=== PATIENT | male | born 1940 | race Caucasian/White ===

== ENCOUNTER → 2018-08-22 | Outpatient (CLI) | payer MEDICARE ==
[2018-08-22 10:30] VITALS: BP 106/66; PULSE 76; RESP 18; TEMP 97.9; BMI 29.0
--- NOTE | 2018-08-22 11:11 | P.GSHP ---
History of Present Illness H&P Date: 08/22/18 Chief Complaint: left breast cancer The patient is a 77 year old white male with acomplaint of a biopsy proven left breast cancer. He had a core biopsy of a lesion in the left breat on 08-13-18 which was positive for invasive ductal cancer. The lesion was noted to be 3 by 2.8 CM on ultrasound. The patient had a CT scan of his chest on 07-23-18 which showed 1. chronic appearing elevation of the right hemidiaphragm, patchy infiltrate right upper lobe 2. large mass in the left chest/retroareolar region, 3. right peribronchial wall thickening. This was done for pneumonia. This has resolved at this time. He follows with DR. Schreiber and was not concerned about his lung. The p atient feels a lump in his breast for about one year. It has increased in size. It is not painful. He has no lumps in his testicles. NO trauma or infectin in the breast. Family History: none Surgical History: 1. appy Medical History: 1. HTN 2. skizophrenia Social History: smoke: none alcohol: none drugs: none - Constitutional Constitutional: Denies chills, Denies fever - EENT Comment: wears glasses Eyes: bilateral blurred vision Ears: deny: decreased hearing, tinnitus Ears, nose, mouth and throat: Denies headache, Denies sore throat - Breasts Breasts: bilateral: as per HPI - Cardiovascular Comment: CHF, hole in the heart Cardiovascular: Reports high blood pressure - Respiratory Comment: pneumonia recently - Gastrointestinal Gastrointestinal: Denies abdominal pain, Denies diarrhea, Denies nausea, Denies vomiting - Genitourinary (Female) Genitourinary: Reports kidney stones - Genitourinary (Male) Genitourinary: Denies dysuria, Denies hematuria - Musculoskeletal Musculoskeletal: Denies myalgias - Integumentary Integumentary: Denies pruritus, Denies rash - Neurological Neurological: Denies numbness, Denies weakness - Psychiatric Psychiatric: Denies anxiety, Denies depression - Endocrine Endocrine: Denies fatigue, Denies weight change - Hematologic/Lymphatic Comment: aspirin - Allergic/Immunologic Allergic/Immunologic: Reports as per HPI Past Medical History Smoking Status: Never smoker Medications and Allergies Home Medications Medication Instructions Recorded Confirmed Type Albuterol Nebulized (Conc) 2.5 mg INHALATION QID 08/22/18 08/22/18 History [Ventolin Nebulized (Conc)] Aspirin [Children's Aspirin] 81 mg PO DAILY 08/22/18 08/22/18 History Budesonide [Pulmicort] 0.25 mg INHALATION DAILY 08/22/18 08/22/18 History Doxycycline Hyclate [Vibramycin] 100 mg PO DAILY 08/22/18 08/22/18 History Ezetimibe [Zetia] 10 mg PO DAILY 08/22/18 08/22/18 History Isosorbide Mononitrate ER [Imdur] 30 mg PO DAILY 08/22/18 08/22/18 History Loratadine [Claritin] 10 mg PO DAILY 08/22/18 08/22/18 History Montelukast Sodium [Singulair] 10 mg PO HS 08/22/18 08/22/18 History OLANZapine [ZyPREXA Zydis] 20 mg PO DAILY 08/22/18 08/22/18 History Ubidecarenone [Coenzyme Q10] 10 mg PO TID 08/22/18 08/22/18 History amLODIPine BES/OLMESARTAN MED 1 each PO DAILY 08/22/18 08/22/18 History [amLODIPine BES/OLMESARTAN MED 5-20 MG] predniSONE 20 mg PO DAILY 08/22/18 08/22/18 History Surgical - Exam Vital Signs Temp Pulse Resp BP Pulse Ox 97.9 F 76 18 106/66 96 08/22/18 10:27 08/22/18 10:27 08/22/18 10:27 08/22/18 10:27 08/22/18 10:27 BMI 29 - General well developed, well nourished, no distress - Eyes normal ocular movement - ENT no hearing loss, no congestion - Neck no masses, trachea midline, no lymphadectomy, no venous distension - Respiratory normal respiratory effort, clear to auscultation - Cardiovascular Rhythm: regular Heart Sounds: normal: S1, S2 - Abdomen Abdomen: soft, non tender, no guarding, no rigid, no rebound - Genitourinary no testicular masses testicles present, testicles non-tender - Integumentary onrmal turgor - Neurologic no disoriented, no combative - Musculoskeletal normal gait, normal posture - Psychiatric oriented to time, oriented to person, oriented to place, speech is normal, memory intact breast exam: right breast: no masses on exam right axilla: no silva of concer left breast: mass retroaerolar, 4 cm no other changes left axilla: few shoddy nodes Results ultrasound results reviewed Assessment and Plan Assessment: Impression: 1. HTN 2. schizophrenia 3. CHF 4. left breast cancer 5. recent pneumonia The results were discussed with the patient and his son. They wish to proceed with mastectomy and SNB, possible axillary disection. They understand the risk and benefits and wish to proceed. Plan: 1. left mastectomy, sentinal node biopsy, possible axillary node dissection 2. ultrasound of right breast and axilla, left axilla 3. clearance from pulmonary, and medicine 4. presetn at tumor board CC: Nevin Li N.P.
--- NOTE | 2018-08-22 13:28 | USB ---
Reason for exam: clinical finding. History: Patient history of breast cancer. Indicated problem(s): palpable abnormality in the left breast. Physical Findings: Breast exam performed by Dr. Padgett. US Breast Limited BILAT Right complete breast ultrasound includes all four quadrants, the retroareolar region and axilla. Finding demonstrates no cystic or solid lesion seen. Left limited breast ultrasound including focal area of concern, retroareolar and axilla demonstrates no cystic or solid lesion seen. Multiple normal nodes noted left axilla. No suspicious adenopathy. These results were verbally communicated with the patient and result sheet given to the patient on 08/22/18. ASSESSMENT: Negative, BI-RAD 1 RECOMMENDATION: Surgical consultation of the left breast. Manage patient on a clinical basis. (Recommendation remains for surgical treatment of the left cancer).
== END | disposition home or self-care (01) ==
LOC: WWCWWP 09:50
PROVIDERS: ATTEND Surgery
DX: N63.10 Unspecified lump in the right breast, unspecified quadrant (principal)

== ENCOUNTER → 2018-09-16 | Outpatient (CLI) | payer MEDICARE ==
--- NOTE | 2018-09-17 08:27 | MM ---
Reason for exam: clinical finding. History: Patient has history of breast cancer at age 77. Malignant ultrasound-guided core biopsy of the left breast, August 13, 2018. Indicated problem(s): lump or thickening in the left breast. Physical Findings: Nurse Summary: 4cm nodule in the left breast at 12 o'clock (nurse mj). MG 3D Diag Mammo W/Cad JOHN Bilateral CC and MLO view(s) were taken. No suspicious finding on the right. Right moderate retroareolar gynecomastia. Biopsied 3.0 left retroareolar mass, known breast cancer. Suspicious left axillary node. These results were verbally communicated with the patient and result sheet given to the patient on 09/16/18. ASSESSMENT: Known biopsy proven malignancy, BI-RAD 6 RECOMMENDATION: Surgical consultation of the left breast. Mammographically suspicious axillary node. Wright node advised. Manage patient on a clinical basis. PRELIMINARY REPORT CALLED AND FAXED TO DR. MOTT ON 09/17/18.
== END | disposition home or self-care (01) ==
LOC: RADMAMWWP 14:02
PROVIDERS: ATTEND Surgery
DX: C50.022 Malignant neoplasm of nipple and areola, left male breast (principal); N62 Hypertrophy of breast
CPT/HCPCS: 77066; G0279; 77062

== ENCOUNTER 2018-09-30 10:14 | Day surgery (SDC) | payer MEDICARE, BC ==
[2018-09-25 15:56] VITALS: BMI 29.9
--- NOTE | 2018-09-26 17:16 | P.PN ---
Progress Note - Text Progress Note Date: 09/26/18 The patient is a 77 year old white male with a complaint of a biopsy proven left breast cancer. He had a core biopsy of a lesion in the left breast on 08-13-18 which was positive for invasive ductal cancer. The lesion was noted to be 3 by 2.8 CM on ultrasound. The patient had a CT scan of his chest on 07-23-18 which showed 1. chronic appearing elevation of the right hemidiaphragm, patchy infiltrate right upper lobe 2. large mass in the left chest/retroareolar region, 3. right peribronchial wall thickening. This was done for pneumonia. This has resolved at this time. He follows with DR. Schreiber and was not concerned about his lung. The patient feels a lump in his breast for about one year. It has increased in size. It is not painful. He has no lumps in his testicles. NO trauma or infectin in the breast. The patient underwent a bilateral breast ultrasound on . This revealed no cystic or solid lesions of concern in the right breast, the left breast ultrasound revealed normal nodes in the left axilla and also did not show any cystic or solid lesion. The patient underwent a bilateral mammogram on 7918. This revealed a left retroareolar mass. the lesion in the left breast as well as some suspicious left axillary adenopathy. No lesions of concern were noted in the right breast. The patient's case was discussed at tumor Board and there was some consideration of doing preoperative chemotherapy. The patient is schizophrenic and after discussion with the patient's son they did not wish to pursue neoadjuvant chemotherapy, as there was some concern as to the patient's compliance. Family History: none Surgical History: 1. appy Medical History: 1. HTN 2. skizophrenia Social History: smoke: none alcohol: none drugs: none - Constitutional Constitutional: Denies chills, Denies fever - EENT Comment: wears glasses Eyes: bilateral blurred vision Ears: deny: decreased hearing, tinnitus Ears, nose, mouth and throat: Denies headache, Denies sore throat - Breasts Breasts: bilateral: as per HPI - Cardiovascular Comment: CHF, hole in the heart Cardiovascular: Reports high blood pressure - Respiratory Comment: pneumonia recently - Gastrointestinal Gastrointestinal: Denies abdominal pain, Denies diarrhea, Denies nausea, Denies vomiting - Genitourinary (Female) Genitourinary: Reports kidney stones - Genitourinary (Male) Genitourinary: Denies dysuria, Denies hematuria - Musculoskeletal Musculoskeletal: Denies myalgias - Integumentary Integumentary: Denies pruritus, Denies rash - Neurological Neurological: Denies numbness, Denies weakness - Psychiatric Psychiatric: Denies anxiety, Denies depression - Endocrine Endocrine: Denies fatigue, Denies weight change - Hematologic/Lymphatic Comment: aspirin - Allergic/Immunologic Allergic/Immunologic: Reports as per HPI Past Medical History Smoking Status: Never smoker Medications and Allergies Home Medications Medication Instructions Recorded Confirmed Type Albuterol Nebulized (Conc) 2.5 mg INHALATION QID 08/22/18 08/22/18 History [Ventolin Nebulized (Conc)] Aspirin [Children's Aspirin] 81 mg PO DAILY 08/22/18 08/22/18 History Budesonide [Pulmicort] 0.25 mg INHALATION DAILY 08/22/18 08/22/18 History Doxycycline Hyclate [Vibramycin] 100 mg PO DAILY 08/22/18 08/22/18 History Ezetimibe [Zetia] 10 mg PO DAILY 08/22/18 08/22/18 History Isosorbide Mononitrate ER [Imdur] 30 mg PO DAILY 08/22/18 08/22/18 History Loratadine [Claritin] 10 mg PO DAILY 08/22/18 08/22/18 History Montelukast Sodium [Singulair] 10 mg PO HS 08/22/18 08/22/18 History OLANZapine [ZyPREXA Zydis] 20 mg PO DAILY 08/22/18 08/22/18 History Ubidecarenone [Coenzyme Q10] 10 mg PO TID 08/22/18 08/22/18 History amLODIPine BES/OLMESARTAN MED 1 each PO DAILY 08/22/18 08/22/18 History [amLODIPine BES/OLMESARTAN MED 5-20 MG] predniSONE 20 mg PO DAILY 08/22/18 08/22/18 History Surgical - Exam Vital Signs Temp Pulse Resp BP Pulse Ox 97.9 F 76 18 106/66 96 08/22/18 10:27 08/22/18 10:27 08/22/18 10:27 08/22/18 10:27 08/22/18 10:27 BMI 29 - General well developed, well nourished, no distress - Eyes normal ocular movement - ENT no hearing loss, no congestion - Neck no masses, trachea midline, no lymphadectomy, no venous distension - Respiratory normal respiratory effort, clear to auscultation - Cardiovascular Rhythm: regular Heart Sounds: normal: S1, S2 - Abdomen Abdomen: soft, non tender, no guarding, no rigid, no rebound - Genitourinary no testicular masses testicles present, testicles non-tender - Integumentary onrmal turgor - Neurologic no disoriented, no combative - Musculoskeletal normal gait, normal posture - Psychiatric oriented to time, oriented to person, oriented to place, speech is normal, memory intact breast exam: right breast: no masses on exam right axilla: no silva of concer left breast: mass retroaerolar, 4 cm no other changes left axilla: few shoddy nodes Results ultrasound results reviewed Assessment and Plan Assessment: Impression: 1. HTN 2. schizophrenia 3. CHF 4. left breast cancer 5. recent pneumonia The results were discussed with the patient and his son. They wish to proceed with mastectomy and SNB, possible axillary disection. They understand the risk and benefits and wish to proceed. Plan: 1. left mastectomy, sentinal node biopsy, possible axillary node dissection 2. ultrasound of right breast and axilla, left axilla 3. clearance from pulmonary, and medicine 4. preseted at tumor board CC: Nevin Li N.P.
[~2018-09-30 10:14] MED LIST: DEXAMETHASONE SOD PHOSPHATE 10 MG/ML 1 ML VIAL IV ONE; HEPARIN SODIUM,PORCINE 5,000 UNIT/ML 1 ML VIAL SQ ONE; HYDROmorphone 0.5 MG/0.5 ML SYRINGE IVP PRN; MIDAZOLAM 2 MG/2 ML VIAL IV PRN; ONDANSETRON 4 MG/2 ML VIAL IVP ONE; Pre Op ABX Message 1 EACH MISC MISCELLANE ONE
[2018-09-30] MEDS ORDERED: IPRATROPIUM-ALBUTEROL 3 ML NEB INHALATION STA (11:02)
[2018-09-30] MEDS: LACTATED RINGERS 1,000 ML IV SCH (11:18)
[2018-09-30] MEDS ORDERED: LIDOCAINE 1% 20 ML VIAL (10MG/ML) FOR IV START SQ ONE (11:19)
[2018-09-30] MEDS ORDERED: MIDAZOLAM (PF) 2 MG/2 ML VIAL IV ONE (12:03)
--- NOTE | 2018-09-30 12:12 | NM ---
EXAMINATION TYPE: NM sentinel node injection DATE OF EXAM: 09/30/2018 COMPARISON: Mammogram 09/26/2018 HISTORY: 77-year-old male with biopsy-proven left breast cancer referred for central node injection. TECHNIQUE AND FINDINGS: The procedure of sentinel lymph node injection was explained to the patient. The benefits, alternatives, and risks were discussed. An informed consent was then obtained. Overlying skin is cleaned with sterile alcohol. Utilizing a 25-gauge needle, 526 uCi Tc 99m Tilmanoc ept was injected surrounding the outer aspect of the left nipple intradermally. The patient tolerated the procedure well without any immediate complication. The patient was kept in the radiology department for short stay after the procedure and then taken to surgery for surgical p rocedure what is presumed intraoperative gamma probe will be used for sentinel lymph node detection. IMPRESSION: Left breast radiotracer injection for sentinel node localization as above.
--- NOTE | 2018-09-30 12:34 | P.ANPRN ---
Procedure Note - Anesthesia - Nerve Block Performed Left Other (see comment) Single Time Out Performed: Yes (PECS 2 block) Date of Procedure: 09/30/18 Procedure Start Time: 12:00 Procedure Stop Time: 12:10 Location of Patient Procedure: PreOp Indication: Acute Post-Operative Pain, Requested by physician Sedation Type: Sedate with meaningful contact maintained Preparation: Sterile Prep, Sterile Dressing Position: Sitting Catheter: None Needle Types: Pajunk Needle Gauge: 20 Technique: Ultrasound Injectate: 0.5% Ropivacaine (see comment for volume) (30 ml)
[2018-09-30] MEDS ORDERED: HEPARIN SODIUM,PORCINE 5,000 UNIT/ML 1 ML VIAL SQ ONE ×2 (12:52→15:33)
[2018-09-30] MEDS ORDERED: ROPIVACAINE 5 MG/ML 30 ML VIAL ONE (13:11)
[2018-09-30] MEDS ORDERED: fentaNYL (PF) 50 MCG/ML 2 ML AMP ONE (13:11)
[2018-09-30] MEDS ORDERED: LIDOCAINE 1% INJ 10MG/ML (20 ML MDV) ONE (13:11)
[2018-09-30] MEDS ORDERED: SUCCINYLCHOLINE CHLORIDE 100 MG/5 ML SYR IV ONE (13:11)
[2018-09-30] MEDS ORDERED: PROPOFOL 10 MG/ML 20 ML VIAL IV ONE (13:11)
[2018-09-30] MEDS ORDERED: NALOXONE 0.4 MG/ML 1 ML VIAL IV PRN (15:25)
[2018-09-30] MEDS ORDERED: HYDROcodone/APAP 5-325MG 1 EACH TAB PO PRN (15:25)
[2018-09-30] MEDS ORDERED: HYDROmorphone 1 MG/ML 1 ML SYRINGE IV PRN (15:25)
--- NOTE | 2018-09-30 15:25 | P.OP ---
Date of Procedure: 09/30/18 Preoperative Diagnosis: Left breast cancer Postoperative Diagnosis: Same Procedure(s) Performed: Left breast mastectomy, sentinel node biopsy, axillary node dissection Anesthesia: EVELYNA Surgeon: Jesi Padgett Estimated Blood Loss (ml): 10 IV fluids (ml): 200 Pathology: other (Left breast, axillary contents, sentinel lymph node) Condition: stable Disposition: floor Indications for Procedure: Biopsy-proven left breast cancer Operative Findings: Clinically suspicious left axillary adenopathy, mass left breast Description of Procedure: The patient is a 77-year-old schizophrenic male who was diagnosed with a left breast cancer. He was presented at tumor Board and neoadjuvant chemotherapy was considered as an option. However the patient is family did not want him to undergo neoadjuvant therapy secondary to the schizophrenia, as they will concerned he may not finish that course of treatment. This was discussed with medical oncology and we decided to proceed with a mastectomy sentinel node biopsy possible axillary node dissection. Pre-operatively radioactive substance was injected in the periareolar area. Following induction of general anesthesia the left breast and axilla were pre pped and draped in a sterile fashion. A marking pen was used to anam the site of the superior and inferior skin flaps. The superior flap was developed first. Incision was made through the skin and subcutaneous tissue to the area of the breast tissue. The skin was elevated using skin hooks and the superior flap was developed. This was developed down to the chest wall. Any large vessels were ligated or divided using the Harmonic scalpel. Following this the inferior flap was developed. A skin marking was made and dissection was carried through the skin and subcutaneous tissue to the area of the breast parenchyma. Dissection through the subcutaneous tissue was performed down to the area of the chest wall. The breast was then removed from medial to lateral being careful to maintain hemostasis using the Harmonic scalpel. At the level of the axilla the tissue was divided and the breast was removed. Interrogation of the axilla revealed a radioactive lymph node with a count of approximately 6000. The background count was minimal. This lymph node was clinically suspicious and sent for frozen section evaluation. Frozen section evaluation was benign. However,there were other clinically suspicious nodes in the axilla. Therefore lower level axillary dissection was performed. The pectoralis minor muscle was followed superiorly to the axillary vein. Tissues were swept inferiorly being careful to maintain and preserve the long thoracic and thoracodorsal nerves. This lower level axillary tissue was removed. There was noted to be a lymph node which was approximately 1-1/2 cm in size. Following this the wound was examined for hemostasis. It was well irrigated. Powderized surgicel was placed. 2 VIGNESH drains were placed. They were secured using a nylon suture. The subcutaneous tissue was closed using a Vicryl suture. This is followed by closure of the skin with 4-0 Monocryl. Steri- Strips were applied. The patient tolerated the procedure in stable condition. All instrument and sponge counts were correct at the end of the case.
[2018-09-30] MEDS ORDERED: SENNOSIDES 8.6 MG TAB PO PRN ×2 (19:46→19:58)
[2018-09-30] MEDS: HEPARIN SODIUM,PORCINE 5,000 UNIT/ML 1 ML VIAL SQ SCH (20:15)
[2018-09-30] MEDS: DEXTROSE 5%-0.45% NACL 1,000 ML IV SCH (20:19)
[2018-09-30] MEDS: BUDESONIDE 0.25 MG/2 ML NEBU INHALATION SCH (20:53)
[2018-09-30] MEDS ORDERED: EZETIMIBE 10 MG TAB PO SCH (21:00)
[2018-09-30] MEDS ORDERED: OLANZapine ODT 10 MG TAB PO SCH (21:00)
[2018-09-30] MEDS ORDERED: MONTELUKAST 10 MG TAB PO SCH (21:00)
[2018-09-30] MEDS: ALBUTEROL NEBULIZED 2.5 MG/3 ML INHALATION SCH (21:06)
--- NOTE | 2018-09-30 22:45 | CONS ---
CONSULTATION DATE OF SERVICE: 09/30/2018 REASON FOR CONSULTATION: Advice regarding CHF and COPD requested by Dr. Cespedes. HISTORY OF PRESENT ILLNESS: This 77-year-old gentleman with a past medical history of CHF, COPD, hypertension, history of pneumonia, history of left breast cancer, underwent left breast mastectomy and sentinel node biopsy, axillary node dissection by Dr. Cespedes. The patient admitted for further evaluation and treatment. There is no history of chest pain. No history of palpitation, headache, loss of consciousness, nausea, vomiting, diarrhea, fever, rigors, chills at this time. PAST MEDICAL HISTORY: History of CHF, COPD, hypertension, history of pneumonia, left breast cancer, history of CAD/stent. MEDICATIONS: Home medications are: 1. Norvasc 2.5 mg daily. 3. Zyprexa 20 mg q.h.s. 4. Singulair 10 mg at bedtime. 5. Claritin 10 mg daily. 6. Imdur 30 mg daily. 7. Zetia 10 mg q.h.s. 8. Pulmicort 0.25 b.i.d. 9. Aspirin 81 mg. 10.Coenzyme Q 300 mg daily. 11.Ventolin 2.5 q.i.d. ALLERGIES: None. FAMILY HISTORY: History of breast cancer in the family. SOCIAL HISTORY: Previous history of smoking, occasional alcohol intake. REVIEW OF SYSTEMS: ENT: Diminished hearing, diminished vision. CARDIOVASCULAR: As mentioned earlier. RESPIRATORY: No cough or hemoptysis. GI: No nausea, no vomiting, diarrhea. no dysuria or hematuria. NERVOUS SYSTEM: No numbness or weakness. ALLERGY/IMMUNOLOGY: No asthma or hayfever. MUSCULOSKELETAL: As mentioned earlier. HEMATOLOGY/ONCOLOGY: As mentioned earlier. ENDOCRINE: No history of diabetes or hypothyroidism. CONSTITUTIONAL: As mentioned earlier. DERMATOLOGY: Negative. RHEUMATOLOGY: Negative. PSYCHIATRIC: As mentioned earlier. PHYSICAL EXAMINATION: Alert and oriented times three. Pulse 81, blood pressure 135/76, respirations 16, temperature 98 degrees, pulse ox 98% on 3 L. HEENT: Conjunctivae normal. NECK: No JVD. CARDIOVASCULAR: S1-S2 muffled. No S3, no S4. RESPIRATORY: Breath sounds diminished in the bases. No rhonchi. No crackles. ABDOMEN: Soft, nontender. No mass palpable. LEGS: No edema. No swelling. NERVOUS SYSTEM: Higher functions as mentioned earlier. Moves all 4 limbs. No focal motor or sensory deficits. LYMPHATICS: No lymph nodes palpable in the neck, axillae or groin. JOINTS: No active deforming arthropathy. LABS: Not available. ASSESSMENT: 1. Status post left breast mastectomy, sentinel node biopsy, axillary node dissection for left breast cancer. 2. History of congestive heart failure. 3. Chronic obstructive pulmonary disease. 4. Hypertension. 5. History of pneumonia. 6. History of nephrolithiasis. 7. History of coronary artery disease/ stent. 8. History of schizophrenia. 9. Remote history of nicotine dependence. RECOMMENDATIONS AND DISCUSSION: This 77-year-old gentleman who presented with multiple medical issues, at this time, I recommend to continue current medications, management and resume the home medications. Incentive spirometry. DVT prophylaxis. The patient is being followed by Nevin Li in the outpatient setting. Recommend close followup with primary physician in the outpatient setting. Further recommendations to follow. Thank you Dr. Gray for letting us participate in the care of this patient. MMTHOMASL / IJN: [id number] / FRED
[2018-10-01] MEDS: DEXTROSE 5%-0.45% NACL 1,000 ML IV SCH ×2 (01:18→14:33)
[2018-10-01] MEDS: LACTATED RINGERS 1,000 ML IV SCH (04:36)
[2018-10-01 07:14] VITALS: BP 134/77; TEMP 97.7
[2018-10-01 07:56] VITALS: RESP 16
[2018-10-01] MEDS: ALBUTEROL NEBULIZED 2.5 MG/3 ML INHALATION SCH ×2 (08:08→11:30)
[2018-10-01] MEDS: BUDESONIDE 0.25 MG/2 ML NEBU INHALATION SCH (08:09)
[2018-10-01] MEDS ORDERED: ISOSORBIDE MONONITRATE ER 30 MG TAB.ER.24H PO SCH (09:00)
[2018-10-01] MEDS ORDERED: ASPIRIN 81 MG PO SCH (09:00)
[2018-10-01] MEDS ORDERED: LORATADINE 10 MG TAB PO SCH (09:00)
[2018-10-01] MEDS ORDERED: amLODIPine 2.5 MG TAB PO SCH (09:00)
--- NOTE | 2018-10-01 09:14 | P.PN ---
Subjective Progress Note Date: 10/01/18 Principal diagnosis: Postoperative day #1 left mastectomy and axillary node dissection The patient is a 77-year-old white male who is status post postop day #1 left breast mastectomy and axillary node dissection. Postoperatively he is doing well with no complaints related to the surgery. He does complain of some neck and back muscle aching. He was tolerating diet without difficulty. Objective - Vital Signs Vital signs: Vital Signs Temp 97.7 F 10/01/18 07:13 Pulse 67 10/01/18 08:20 Resp 16 10/01/18 07:49 BP 134/77 10/01/18 07:13 Pulse Ox 93 L 10/01/18 07:13 Intake & Output 09/30/18 10/01/18 10/01/18 18:59 06:59 18:59 Intake Total 550 240 260 Output Total 10 50 Balance 540 190 260 Weight 86 kg Intake: IV 550 Oral 240 260 Output: Drainage 50 Left 1 40 Left 2 10 Estimated Blood Loss 10 Other: Voiding Method Toilet Toilet - Constitutional General appearance: Present: obese - EENT Eyes: Present: EOMI ENT: Present: hearing grossly normal - Neck Details: Mild tenderness to palpation left posterior shoulder and back appears to be muscle tightness - Respiratory Respiratory: bilateral: CTA - Cardiovascular Rhythm: regular Heart sounds: normal: S1, S2 - Gastrointestinal General gastrointestinal: Present: soft - Integumentary Integumentary Comment(s): Incision clean and dry, no evidence of any hematoma or infection VIGNESH #1:40 mL serous 2. VIGNESH #2 10 mL serous Integumentary: Present: normal turgor - Psychiatric Psychiatric: Present: A&O x's 3 Assessment and Plan Assessment: Impression: 1. Patient is a 77-year-old schizophrenic male postop day #1 left mastectomy and axillary node dissection 2. Patient stable from a surgical standpoint 3. Appreciate medical consult 4. Patient complaining of some left shoulder posterior neck discomfort appears to be musculoskeletal Plan: 1. Heating pad to left posterior neck/shoulder 2. Attempt to get massage therapist for left posterior neck/shoulder discomfort 3. Discharge home if okay with medicine 4. Teach home care about drains 5. Follow-up with Dr. Gray on Saturday
[2018-10-01] MEDS: HEPARIN SODIUM,PORCINE 5,000 UNIT/ML 1 ML VIAL SQ SCH (09:18)
--- NOTE | 2018-10-01 09:18 | P.DS ---
Providers Attending physician: Jesi Padgett Consults: 09/30/18 15:30 Consult Physician Routine Consulting Provider: Adalid Serrano Consult Reason/Comments: medical managment Do you want consulting provider notified?: Yes 09/30/18 15:53 Consult Physician Routine Consulting Provider: Lawrence Schreiber Consult Reason/Comments: KNOWN TO MD FOR PULMONARY CONCERNS Do you want consulting provider notified?: Yes Primary care physician: Deondre Baker Plan - Discharge Summary Discharge Rx Participant: Yes New Discharge Prescriptions: No Action Montelukast Sodium [Singulair] 10 mg PO HS Loratadine [Claritin] 10 mg PO DAILY OLANZapine [ZyPREXA Zydis] 20 mg PO HS Isosorbide Mononitrate ER [Imdur] 30 mg PO DAILY Ezetimibe [Zetia] 10 mg PO HS Budesonide [Pulmicort] 0.25 mg INHALATION BID Aspirin [Children's Aspirin] 81 mg PO DAILY Albuterol Nebulized (Conc) [Ventolin Nebulized (Conc)] 2.5 mg INHALATION QID amLODIPine [Norvasc] 2.5 mg PO DAILY Ubidecarenone [Co Q-10] 300 mg PO DAILY Sennosides [Ex-Lax] 15 mg PO DIRECTED PRN PRN Reason: Constipation Discharge Medication List Albuterol Nebulized (Conc) [Ventolin Nebulized (Conc)] 2.5 mg INHALATION QID 08/22/18 [History] Aspirin [Children's Aspirin] 81 mg PO DAILY 08/22/18 [History] Budesonide [Pulmicort] 0.25 mg INHALATION BID 08/22/18 [History] Ezetimibe [Zetia] 10 mg PO HS 08/22/18 [History] Isosorbide Mononitrate ER [Imdur] 30 mg PO DAILY 08/22/18 [History] Loratadine [Claritin] 10 mg PO DAILY 08/22/18 [History] Montelukast Sodium [Singulair] 10 mg PO HS 08/22/18 [History] OLANZapine [ZyPREXA Zydis] 20 mg PO HS 08/22/18 [History] Sennosides [Ex-Lax] 15 mg PO DIRECTED PRN 09/25/18 [History] Ubidecarenone [Co Q-10] 300 mg PO DAILY 09/25/18 [History] amLODIPine [Norvasc] 2.5 mg PO DAILY 09/25/18 [History] Follow up Appointment(s)/Referral(s): [facility], [NON-STAFF] - Jesi Padgett MD [STAFF PHYSICIAN] - 1 Week Activity/Diet/Wound Care/Special Instructions: Patient may shower after 48 hours Drainage and recorded VIGNESH output twice a day and as needed Keep binder in place at all times unless showering Discharge Disposition: HOME WITH HOME HEALTH SERVICES
[2018-10-01 11:33] VITALS: PULSE 68
--- NOTE | 2018-10-01 14:37 | PN ---
PROGRESS NOTE DATE OF SERVICE: 10/01/2018 This is a 77-year-old gentleman who was admitted after breast surgery, is improving significantly. No chest pain. No palpitations. No fever. PHYSICAL EXAM: Alert and oriented x3. The pulse is 66. The blood pressure 134/77, respiration 16, temperature 97.7, pulse ox 93% on room air. HEENT: Conjunctivae normal. NECK: No jugular venous distension. CARDIOVASCULAR: S1, S2, muffled. RESPIRATORY: Breath sounds diminished at the bases, no rhonchi, no crackles. ABDOMEN: Soft, nontender. LEGS: No edema. No swelling. NERVOUS SYSTEM: No focal deficits. CHEST: Status post surgery. LABS: Not available. ASSESSMENT: 1. Status post left breast mastectomy, sentinel node biopsy, axillary node dissection for left breast cancer. 2. History of congestive heart failure. 3. History of chronic obstructive pulmonary disease. 4. Hypertension. 5. History of pneumonia. 6. History of nephrolithiasis. 7. History of coronary artery disease, stent. 8. History of schizophrenia. 9. Remote history of nicotine dependence. RECOMMENDATION: Recommend to continue current medications. Resume the home medications. Closely follow with primary physician in the outpatient setting. DVT prophylaxis. Incentive spirometry. The rest of the recommendations per Surgery. Further recommendations to follow. Thank you, Dr. Padgett. EVA / MARÍA ELENAN: [phone] /
== END 2018-10-01 15:50 | disposition home health service (06) ==
LOC: OR 10:14 → 4SSUR 17:59 → OR 10-01 15:50
PROVIDERS: ATTEND Surgery
DX: C50.122 Malignant neoplasm of central portion of left male breast (principal); C77.3 Secondary and unspecified malignant neoplasm of axilla and upper limb lymph nodes; Z17.0 Estrogen receptor positive status [ER+]; F20.9 Schizophrenia, unspecified; J44.9 Chronic obstructive pulmonary disease, unspecified; I25.10 Atherosclerotic heart disease of native coronary artery without angina pectoris; Z95.5 Presence of coronary angioplasty implant and graft; I11.0 Hypertensive heart disease with heart failure; I50.9 Heart failure, unspecified; E78.5 Hyperlipidemia, unspecified; I73.9 Peripheral vascular disease, unspecified; E66.9 Obesity, unspecified; Z68.29 Body mass index [BMI] 29.0-29.9, adult; Z87.891 Personal history of nicotine dependence; Z79.82 Long term (current) use of aspirin; Z79.2 Long term (current) use of antibiotics; Z79.51 Long term (current) use of inhaled steroids; Z79.899 Other long term (current) drug therapy; Z88.8 Allergy status to other drugs, medicaments and biological substances; Z88.1 Allergy status to other antibiotic agents; Z91.09 Other allergy status, other than to drugs and biological substances; Z87.01 Personal history of pneumonia (recurrent); Z80.3 Family history of malignant neoplasm of breast; Z87.442 Personal history of urinary calculi; Z97.3 Presence of spectacles and contact lenses; Z97.2 Presence of dental prosthetic device (complete) (partial)
CPT/HCPCS: 19307; 94640 ×3; 64450; 88342; 88331; 88307; 88341; 38792; A9520; J1644 ×2; J1100; J2405; J2001; J3010; J2795; J0330; J2704; J2250; 64490

== ENCOUNTER → 2018-10-03 | Outpatient (CLI) | payer MEDICARE, BC ==
[2018-10-03 14:47] VITALS: BP 111/66; PULSE 73; RESP 18; TEMP 98.2; BMI 29.7
--- NOTE | 2018-10-03 15:01 | P.PN ---
Subjective Progress Note Date: 10/03/18 Abilio is a 77-year-old white male status post left mastectomy and sentinel node biopsy, axillary node dissection and [id number]. This operative is doing well with no complaints. His VIGNESH drainage is greater than 30 mL in each drain but it is very serious in nature. He is not complaining about anything since the surgery. His pathology is not yet available. Objective - Vital Signs Vital signs: Vital Signs Temp 98.2 F 10/03/18 14:44 Pulse 73 10/03/18 14:44 Resp 18 10/03/18 14:44 BP 111/66 10/03/18 14:44 Pulse Ox 95 10/03/18 14:44 Intake & Output 10/02/18 10/03/18 10/03/18 18:59 06:59 18:59 Weight 86.183 kg - Constitutional General appearance: Present: obese - EENT Eyes: Present: EOMI - Neck Neck: Present: normal ROM - Respiratory Details: Decreased breath sounds at bases - Cardiovascular Heart sounds: normal: S1, S2 - Integumentary Integumentary Comment(s): Incision clean and dry VIGNESH drains serious drainage No evidence of infection - Musculoskeletal Musculoskeletal: Present: gait normal - Psychiatric Psychiatric: Present: A&O x's 3, appropriate affect Assessment and Plan Assessment: Impression: 1. Patient status post left breast mastectomy axillary node dissection 2. Pathology pending 3. Hypertension 4. Schizophrenia Plan: 1. Follow up next week for drain removal 2. Appointment with medical oncology Cc: Nevin Li
== END ==
LOC: WWCWWP 13:55
PROVIDERS: ATTEND Surgery
DX: Z53.9 Procedure and treatment not carried out, unspecified reason (principal)

== ENCOUNTER → 2018-10-09 | Outpatient (CLI) | payer MEDICARE, BC ==
[2018-10-09 15:28] VITALS: BP 107/69; PULSE 71; RESP 18; TEMP 97.5; BMI 29.7
--- NOTE | 2018-10-09 15:51 | P.PN ---
Progress Note - Text Progress Note Date: 10/09/18 Abilio is a 77-year-old white male who is status post [place] [id number]. 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 The patient is doing well however he does have some mild excoriation in the midportion of the left incision. His VIGNESH drain is serous but having over 30 mL for the past several days. Right eye periorbital cyst growing and patient complains of the eye watering. Physical exam: Lungs: Clear Heart: Regular rate and rhythm Incision: Clean and dry with some mild excoriation in the midportion of the superior aspect VIGNESH drains is serous in nature Right eye. Swelling in watering Impression: 1. Stage I the left breast cancer completely resected 2. Excoriation superior aspect left breast incision 3. VIGNESH draining serous drainage greater than 30 mL in 24 hour. 4. Swollen and inflamed right periorbital region over the past 24 hours Plan: 1. Drains to stay in place until next week 2. Silvadene to the area of excoriation on left chest 3. Follow-up with primary care doctor regarding right eye 4. Appointment with medical oncology cc: Nevin Dubon
== END | disposition home or self-care (01) ==
LOC: WWCWWP 14:58
PROVIDERS: ATTEND Surgery
DX: Z53.9 Procedure and treatment not carried out, unspecified reason (principal)

== ENCOUNTER → 2018-10-15 | Outpatient (CLI) | payer MEDICARE, BC ==
[2018-10-15 13:09] VITALS: BP 101/62; PULSE 72; RESP 18; TEMP 97.9; BMI 29.7
--- NOTE | 2018-10-15 13:23 | P.PN ---
Progress Note - Text Progress Note Date: 10/15/18 Abilio is a 77-year-old white male who is status post [place] [id number]. Pathology was a T2 N1 G2 HER-2 positive ER/[place] positive stage Ib cancer. The patient is doing well however he does improvement in the mild excoriation in the lateral aspect of the incision. His right eye has decreased swelling at this time and he will follow with his primary care provider if this bothers him. Since his last visit he does however have some swelling of the lower aspect of his left arm. This appears to be consistent with some mild lymphedema. The output from VIGNESH drain #1 his decreased to approximately 10 mL 2 days ago and 15 mL yesterday. The output from VIGNESH #1 continues to be over 30 mL for the past 2 days. Drains are serous in nature. He has an appointment with medical oncology on November 07. Physical exam: Lungs: Clear Heart: Regular rate and rhythm Incision: Clean and dry with some mild excoriation in the midportion of the superior aspect improved VIGNESH drains is serous in nature Right eye decreased periorbatal swelling Impression: 1. Stage IB left breast cancer completely resected 2. Excoriation superior aspect left breast incision improved 3. VIGNESH#1 drain ready for emoval,VIGNESH #2 draining serous drainage greater than 30 mL in 24 hour. 4. Swollen and inflamed right periorbital region improved 5. mild left lower arm lymphedema Plan: 1. Drain #[address], drain #1to be removed 2. Silvadene to the area of excoriation on left chest 3. Follow-up with primary care doctor regarding right eye 4. Appointment with medical oncology Periods appointment for lymphedema evaluation 6. Follow-up October 27 regarding removal of second drain cc: Nevin Dubon
== END | disposition home or self-care (01) ==
LOC: WWCWWP 12:38
PROVIDERS: ATTEND Surgery
DX: Z53.9 Procedure and treatment not carried out, unspecified reason (principal)

== ENCOUNTER → 2018-10-27 | Outpatient (CLI) | payer MEDICARE, BC ==
[2018-10-27 15:31] VITALS: BP 106/68; PULSE 69; RESP 16; TEMP 98.3; BMI 29.7
--- NOTE | 2018-10-27 15:57 | P.PN ---
Progress Note - Text Progress Note Date: 10/27/18 Abilio is a 77-year-old white male who is status post left breast mastectomy and axillary node dissection and [id number]. 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 The patient is doing well however he does have some swelling of his left hand and forearm. He has not had any fever or chills. His VIGNESH drain came out this morning. He was putting out approximately 60 mL per day. The drain came out inadvertently in the shower. Physical exam: Lungs: Clear Heart: Regular rate and rhythm Incision: Clean and dry VIGNESH drains removed at this time no evidence of any seroma Left hand and forearm swollen The left wrist 7-1/2 inches, right wrist 5-1/2 inches in circumference Impression: 1. Stage IB left breast cancer completely resected 2. Swelling of the left forearm and hand 3. All VIGNESH drains removed at this time 4. Swollen and inflamed right. Orbital region improved Plan: 1. Keflex 2. Appointment with lymphedema specialist 3. Follow-up with medical oncology 4. Follow up here in 3 months time or sooner if any concerns 5. We have discussed the possibility of seroma development and if this occurs and he is symptomatic he will be seen here for drainage of seroma Cc: Nevin Hazel
== END | disposition home or self-care (01) ==
LOC: WWCWWP 15:09
PROVIDERS: ATTEND Surgery
DX: Z53.9 Procedure and treatment not carried out, unspecified reason (principal)

== ENCOUNTER → 2018-11-14 | Outpatient (CLI) | payer MEDICARE, BC ==
--- NOTE | 2018-11-19 09:29 | PE ---
EXAMINATION TYPE: PET CT fusion skull to thigh DATE OF EXAM: 11/14/2018 COMPARISON: Left breast ultrasound dated 08/22/2018 HISTORY: Left breast cancer with left mastectomy and sentinel node biopsy performed in September 2018. No prior radiation or chemotherapy.. TECHNIQUE: Following the intravenous administration of 13.58 mCi of F-18 FDG, whole body images are performed from the skull base to the midthigh. Images are reviewed on the computer in the coronal, a xial, and sagittal planes. Reconstructed rotating images are created on independent workstation and reviewed on the computer. A localization and attenuation correction CT is performed in conjunction with the PET scan. SCAN: Initial treatment strategy FINDINGS: Mediastinal background: 2.44 Abdominal background: 3.75 SKULL BASE AND NECK: Uptake is seen within the left fossa of Rosenmuller with maximum SUV of 3.8. Le ft pontine tonsil uptake is also hypermetabolic with an SUV of 4.45. Uptake within the facet joints o f the cervical spine and within the cervical spine itself maximum SUV of 4.64. CHEST, MEDIASTINUM, AND HILAR REGION: FDG avidity surrounding the left breast implant is a maximum DELGADO V of 2.91. ABDOMEN AND PELVIS: No suspicious metabolic uptake. OSSEOUS STRUCTURES: Multifocal uptake is seen throughout the spine although there is diffuse advanced degenerative disc disease. Maximum SUV within the cervical spine of 2.45, within the thoracic spine of 2.08, and within the lumbar spine of 3.11. Right glenohumeral uptake and a maximum SUV of 2.7. Upt norris at the right greater trochanter has a maximum SUV of 2.99 and at the left of 2.49. OTHER CT: There has been reconstruction of the left breast with prepectoral implant placed status pos t left mastectomy. No surgical clips are seen within the axilla. There is fat stranding of the left c hest wall from the recent surgery. Prominence of the left temporal sulci could relate to age-related volume loss or prior infarct. Moderate mucosal thickening in the ethmoid sinuses incidentally noted a s well as mucosal retention cyst within the right maxillary sinus measuring 1.0 cm. Advanced degenera tive changes of the cervical spine are seen and of the thoracic spine and lumbar spine. Osseous demin eralization is mild but diffuse most notable in the pelvis. Sclerotic probable bone island is seen of the left femoral head. Sclerotic lesion of the right iliac bone is nonspecific measuring 5.0 cm with out focal hypermetabolic activity. There is incomplete distention of the urinary bladder with slight urinary bladder wall thickening thr oughout, which may be on the basis of chronic obstructive uropathy given the large prostate gland siz e at 5.5 cm in transverse dimension. Central zone calcifications are also seen within the heterogenou s prostate gland. Within the right posterior lateral urinary bladder there is a 7 mm calculus. No rig ht-sided hydronephrosis nor ureteral dilatation. This calculus is just lateral to the ureterovesicula r junction. Additional 2 mm dependent calculus is seen. There is tortuosity of the abdominal aorta with mild atherosclerosis. 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 Bilateral ing uinal rings are patulous and fat-containing. There is no dilated large or small bowel bowel. Small fa t filled umbilical hernia is seen. Small hiatal hernia is also present. Pancreatic atrophy is noted. Adrenal glands are unremarkable as is the unenhanced spleen. Punctate midpole calculus is nonobstruct hamlet measuring 1 mm the right kidney. Mild coronary artery calcifications are evident. Retroareolar pr obable right gynecomastia is seen. Right hemidiaphragm elevation is present with bibasilar subsegment al atelectasis noted. IMPRESSION: 1. No convincing evidence of metastasis within the chest, abdomen, or pelvis. Slight uptake just abov e mediastinal background surrounding the left breast implant/spacer is presumed to be postsurgical as it is nonfocal. 2. Multifocal uptake within the osseous structures is likely degenerative as advanced degenerative ch devon is seen throughout and again uptake is nonfocal. The most avid uptake is seen within the mid fac et joints of the left cervical spine measuring up to 4.6. 3. Nonspecific slightly hypermetabolic uptake is present within the left fossa of Rosenmuller and lef t pontine tonsil. Although this may simply relate to physiologic uptake from lymphoid tissue there is asymmetry and uptake above background and therefore direct visualization is recommended as a precaut ionary measure.
== END | disposition home or self-care (01) ==
LOC: RADPETMAIN 17:58
PROVIDERS: ATTEND Internal Medicine Hematology & Oncology
DX: C50.122 Malignant neoplasm of central portion of left male breast (principal)
CPT/HCPCS: 78815; A9552

== ENCOUNTER → 2018-12-11 | Outpatient (CLI) | payer MEDICARE, BC ==
--- NOTE | 2018-12-11 17:06 | P.PN ---
Subjective Progress Note Date: 12/11/18 Abilio is a 77-year-old white male who is status post [place] [id number]. Pathology was a T2 N1 G2 HER-2 positive ER/[place] positive stage Ib cancer. The patient is doing well the first drain was removed on October 27, and the second drain came out in the shower. The patient since that time is noticed some swelling at the mastectomy site and wishes to be evaluated for seroma. He has seen medical oncology a PET scan was performed and was told this was clear and was given an option of chemotherapy but chose not to take this. He was recommended to taken anti-hormone treatment however the patient is having some financial restrictions with respect to this. They're going to follow up on this with medical oncology. He did not see any radiation oncologist. On physical examination lungs: Clear Heart: Regular rate and rhythm Left breast mastectomy site: Incision clean and dry no evidence of recurrent cancer syndrome is present Impression: Seroma left chest wall Plan: Drainage of seroma CC: Dr. Olivia Agrawal
--- NOTE | 2018-12-11 17:08 | P.PCN ---
Date of Procedure: 12/11/18 Preoperative Diagnosis: Left chest wall seroma Postoperative Diagnosis: same Procedure(s) Performed: Drainage of seroma Surgeon: Jesi Padgett Pathology: none sent Condition: stable Disposition: same day Indications for Procedure: Enlarging seroma left chest wall Description of Procedure: The area of seroma was prepped using alcohol in the 60 mL syringe with an 18- gauge needle was introduced into the area of the seroma approximately 220 mL of straw-colored fluid was removed with resolution of the seroma. It was necessary to place the needle at several different locations to aspirate the entire seroma. The patient tolerated procedure in stable condition. He will follow-up in approximately 8 weeks.
[2018-12-11 17:13] VITALS: BP 139/73; PULSE 67; RESP 18; TEMP 97.9; BMI 29.7
== END ==
LOC: WWCWWP 15:50
PROVIDERS: ATTEND Surgery
DX: Z53.9 Procedure and treatment not carried out, unspecified reason (principal)

== ENCOUNTER → 2018-12-22 | Outpatient (CLI) | payer MEDICARE, BC ==
--- NOTE | 2018-12-23 09:53 | BD ---
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 Bone mineral density as measured about the Lumbar spine is: ----- L1-L4(G/cm2): 1.704 T Score Values are as follows: ----- L2: 4.0 ----- L3: 4.7 ----- L4: 5.0 ----- L1-L4:4.4 Bone mineral density about the R hip (g/cm2): 0.908 Bone mineral density about the L hip (g/cm2): 0.737 T Score values are as follows: -----R Neck: -0.9 -----L Neck: -2.2 -----R Total: -0.4 -----L Total: -0.4 IMPRESSION: Normal (Values between +1 and -1 indicate normal bone mass). Values approach osteopenia with regards to the right femur. Consider repeating this study in 5 years or sooner if there is some new clinical indication. NOTE: T-SCORE=SD OF THE YOUNG ADULT MEAN.
== END | disposition home or self-care (01) ==
LOC: RADBDWWP 16:15
PROVIDERS: ATTEND Internal Medicine Hematology & Oncology
DX: C50.122 Malignant neoplasm of central portion of left male breast (principal); Z79.890 Hormone replacement therapy
CPT/HCPCS: 77080

== ENCOUNTER → 2019-02-12 | Outpatient (CLI) | payer MEDICARE, BC ==
[2019-02-12 15:28] VITALS: BP 122/71; PULSE 76; RESP 18; TEMP 97.4
--- NOTE | 2019-02-12 15:43 | P.PN ---
Subjective Progress Note Date: 02/12/19 Principal diagnosis: Surveillance left breast stage IB cancer Abilio is an 78-year-old white male who presents following left breast mastectomy and axillary node dissection and 72 [id number]. Pathology was a T2 N1 G2 ER/NM positive HER-2/[place] positive stage IB left breast cancer. This time he is doing well. He was seen by radiation and medical oncology and has not had any adjuvant therapy. They had considered hormonal therapy but the patient opted not to have this secondary to the cost. The patient does complain of a rash over the medial aspect of the left chest extending into the right chest and down onto the abdomen. He states that he feels that this is been present since the surgery. It galarza not itch and it does not hurt. He does have concern as to what is causing it. Objective - Vital Signs Vital signs: Vital Signs Temp 97.4 F L 02/12/19 15:25 Pulse 76 02/12/19 15:25 Resp 18 02/12/19 15:25 BP 122/71 02/12/19 15:25 Pulse Ox 99 02/12/19 15:25 Intake & Output 02/11/19 02/12/19 02/12/19 18:59 06:59 18:59 Weight 86.183 kg - Exam BMI 29.8 - Constitutional General appearance: Present: average body habitus - EENT Eyes: Present: EOMI ENT: Present: hearing grossly normal - Respiratory Respiratory: bilateral: CTA - Cardiovascular Rhythm: regular Heart sounds: normal: S1, S2 - Gastrointestinal General gastrointestinal: Present: soft - Integumentary Integumentary Comment(s): Somewhat mottled erythematous rash over the medial aspect of the left chest extending to the right chest and down onto the anterior abdominal wall Incision: Left chest wall incision clean and dry well-healed no evidence of recurrent cancer Integumentary: Present: normal turgor - Musculoskeletal Musculoskeletal: Present: gait normal - Psychiatric Psychiatric: Present: A&O x's 3, appropriate affect - Additional findings Additional findings: Breast examination: Right breast: Multiple positional exam no dominant masses or nodules of concern Right axilla: No adenopathy of concern Left chest wall incision clean and dry no evidence of recurrent cancer mild erythematous rash over inner aspect of left chest wall extending onto the right chest wall and anterior abdominal wall Assessment and Plan Assessment: Impression: 1. Patient status post left mastectomy for stage I the cancer, no evidence of recurrent disease 2. Patient recommended to have anti-hormonal therapy but declined secondary to cost, is going to follow with medical oncology 3. Rash over the inner aspect of the left chest and extending into the right chest and anterior abdominal wall Plan: 1. Punch biopsy area of the rash patient was given option of seeing a audit associate but wishes to have punch biopsy 2. Follow-up with medical oncology 3. Follow in3 months for surveillance encounter 20 minutes, > 50% time planning and counseling Cc: Dr. Nevin Li, Dr. Baker
== END | disposition home or self-care (01) ==
LOC: WWCWWP 15:17
PROVIDERS: ATTEND Surgery
DX: Z53.9 Procedure and treatment not carried out, unspecified reason (principal)

== ENCOUNTER 2019-02-15 12:52 | Emergency (ER) | payer MEDICARE, BC ==
[2019-02-15] MEDS ORDERED: MAGNESIUM CITRATE 296 ML BOTTLE PO ONE (13:56)
[2019-02-15 14:18] LABS: Appearance,Urine Turbid (Clear); Bacteria,Urine Rare /hpf; Bilirubin,Urine Negative (Negative); Blood,Urine Moderate (Negative); Color,Urine Yellow; Glucose,Urine (UA) Negative (Negative); Ketones,Urine Negative (Negative); Leukocyte Esterase,Urine Large (Negative); Mucus,Urine Few /hpf; Nitrite,Urine Negative (Negative); PH, Urine 5.5 (5.0-8.0); Protein,Urine 2+ (Negative); RBC,Urine >182 /hpf (0-5); Urobilinogen,Urine <2.0 mg/dL (<2.0); WBC,Urine >182 /hpf (0-5)
[2019-02-15] MEDS ORDERED: LEVOFLOXACIN 750 MG TAB PO STA (14:21)
--- NOTE | 2019-02-15 14:53 | ED ---
Male Urogenital HPI - General Chief complaint: Urogenital Stated complaint: Infection Time Seen by Provider: 02/15/19 12:59 Source: patient Mode of arrival: ambulatory Limitations: no limitations - History of Present Illness Initial comments: Patient complains of burning on urination. He has no belly or back pain. He has no shortness of breath. He has no chest pain. He has no nausea or vomiting or diaphoresis. He has no weakness. He also complains of constipation. He took medicine for that with no relief. He has no blood in the stool. He has no black or tarry stool. - Related Data Home Medications Medication Instructions Recorded Confirmed Albuterol Nebulized (Conc) 2.5 mg INHALATION QID 08/22/18 02/12/19 [Ventolin Nebulized (Conc)] Aspirin [Children's Aspirin] 81 mg PO DAILY 08/22/18 02/12/19 Budesonide [Pulmicort] 0.25 mg INHALATION BID 08/22/18 02/12/19 Ezetimibe [Zetia] 10 mg PO HS 08/22/18 02/12/19 Isosorbide Mononitrate ER [Imdur] 30 mg PO DAILY 08/22/18 02/12/19 Loratadine [Claritin] 10 mg PO DAILY 08/22/18 02/12/19 Montelukast Sodium [Singulair] 10 mg PO HS 08/22/18 02/12/19 OLANZapine [ZyPREXA Zydis] 20 mg PO HS 08/22/18 02/12/19 Sennosides [Ex-Lax] 15 mg PO DIRECTED PRN 09/25/18 02/12/19 Ubidecarenone [Co Q-10] 300 mg PO DAILY 09/25/18 02/12/19 amLODIPine [Norvasc] 2.5 mg PO DAILY 09/25/18 02/12/19 Previous Rx's Medication Instructions Recorded Levofloxacin 750 mg PO DAILY #7 tablet 02/15/19 Allergies Allergy/AdvReac Type Severity Reaction Status Date / Time No Known Allergies Allergy Verified 02/12/19 15:28 Review of Systems ROS Statement: Those systems with pertinent positive or pertinent negative responses have been documented in the HPI. ROS Other: All systems not noted in ROS Statement are negative. Past Medical History Past Medical History: Cancer, Heart Failure, COPD, Hypertension, Pneumonia Additional Past Medical History / Comment(s): LEFT BREAST CANCER (09/01/18)., PNEUMONIA 4-5 WEEKS AGO.,HX KIDNEY STONES., RESIDES AT [facility] HOME # [phone]., PT ABLE TO MAKE OWN DECISIONS AND SIGN OWN CONSENTS PER SONSIMI., COPY OF PATIENT ADVOCATE PAPERS SCANNED INTO CHART. History of Any Multi-Drug Resistant Organisms: None Reported Past Surgical History: Appendectomy, Heart Catheterization With Stent Additional Past Surgical History / Comment(s): APPENDECTOMY A CHILD Past Anesthesia/Blood Transfusion Reactions: No Reported Reaction Date of Last Stent Placement:: 2008 Past Psychological History: Schizophrenia Smoking Status: Never smoker Past Alcohol Use History: None Reported Past Drug Use History: None Reported - Past Family History Brother(s) Family Medical History: Cancer Additional Family Medical History / Comment(s): BREAST CANCER? General Exam Limitations: no limitations General appearance: alert, in no apparent distress Head exam: Present: atraumatic, normocephalic, normal inspection Eye exam: Present: normal appearance, PERRL, EOMI. Absent: scleral icterus, conjunctival injection, periorbital swelling ENT exam: Present: normal exam, mucous membranes moist Neck exam: Present: normal inspection. Absent: tenderness, meningismus, lymphadenopathy Respiratory exam: Present: normal lung sounds bilaterally. Absent: respiratory distress, wheezes, rales, rhonchi, stridor Cardiovascular Exam: Present: regular rate, normal rhythm, normal heart sounds. Absent: systolic murmur, diastolic murmur, rubs, gallop, clicks GI/Abdominal exam: Present: soft, normal bowel sounds. Absent: distended, tenderness, guarding, rebound, rigid Extremities exam: Present: normal inspection, full ROM, normal capillary refill. Absent: tenderness, pedal edema, joint swelling, calf tenderness Back exam: Present: normal inspection Neurological exam: Present: alert, oriented X3, CN II-XII intact Psychiatric exam: Present: normal affect, normal mood Skin exam: Present: warm, dry, intact, normal color. Absent: rash Course Vital Signs 02/15/19 02/15/19 12:55 13:11 Temperature 99.2 F Pulse Rate 101 H Respiratory 18 20 Rate Blood Pressure 131/74 O2 Sat by Pulse 93 L Oximetry Medical Decision Making - Medical Decision Making Patient complains of dysuria. Urinalysis is consistent with UTI. I gave him a dose of antibiotics and a prescription for antibiotics. I gave him a dose of magnesium citrate for constipation. He has no vomiting. He can tolerate oral intake. His examination is unremarkable. He is stable for discharge. - Lab Data Lab Results 02/15/19 Range/Units 14:04 Urine Color Yellow Urine Appearance Turbid (Clear) Urine pH 5.5 (5.0-8.0) Ur Specific [place] 1.020 (1.001-1.035) Urine Protein 2+ H (Negative) Urine Glucose (UA) Negative (Negative) Urine Ketones Negative (Negative) Urine Blood Moderate H (Negative) Urine Nitrite Negative (Negative) Urine Bilirubin Negative (Negative) Urine Urobilinogen <2.0 (<2.0) mg/dL Ur Leukocyte Esterase Large H (Negative) Urine RBC >182 H (0-5) /hpf Urine Bacteria Rare H (None) /hpf Urine Mucus Few H (None) /hpf Disposition Clinical Impression: UTI (urinary tract infection) Disposition: HOME SELF-CARE Condition: Good Instructions (If sedation given, give patient instructions): Urinary Tract Infection in Men (ED) Prescriptions: Levofloxacin 750 mg PO DAILY #7 tablet Is patient prescribed a controlled substance at d/c from ED?: No Referrals: Deondre Baker MD [Primary Care Provider] - 1-2 days
[2019-02-15 15:01] VITALS: BP 119/74; PULSE 74; RESP 18; TEMP 97.9
== END 2019-02-15 15:00 | disposition home or self-care (01) ==
LOC: EC 12:52
DX: N39.0 Urinary tract infection, site not specified (principal); K59.00 Constipation, unspecified; I11.0 Hypertensive heart disease with heart failure; I50.9 Heart failure, unspecified; J44.9 Chronic obstructive pulmonary disease, unspecified; Z79.82 Long term (current) use of aspirin; Z79.899 Other long term (current) drug therapy; Z79.51 Long term (current) use of inhaled steroids; Z85.3 Personal history of malignant neoplasm of breast; Z95.5 Presence of coronary angioplasty implant and graft
CPT/HCPCS: 81001; 87077; 87086; 87186; 99283

== ENCOUNTER → 2019-05-14 | Outpatient (CLI) | payer MEDICARE, BC ==
[2019-05-14 16:19] VITALS: BP 116/75; PULSE 80; RESP 20; TEMP 98.3
--- NOTE | 2019-05-14 16:35 | P.PN ---
Subjective Progress Note Date: 05/14/19 Principal diagnosis: left breast cancer Stage IB Abilio is an 78-year-old white male who presents following left breast maste[place] [id number]. Pathology was a T2 N1 G2 ER/NM positive HER-2/valentina positive stage IB left breast cancer. This time he is doing well. He was seen by radiation and medical oncology and has not had any adjuvant therapy. They had considered hormonal therapy but the patient opted not to have this secondary to the cost. Objective - Vital Signs Vital signs: Vital Signs Temp 98.3 F 05/14/19 16:15 Pulse 80 05/14/19 16:15 Resp 20 05/14/19 16:15 BP 116/75 05/14/19 16:15 Pulse Ox 94 L 05/14/19 16:15 Intake & Output 05/13/19 05/14/19 05/14/19 18:59 06:59 18:59 Weight 90.718 kg - Exam BMI 31.3 - Constitutional General appearance: Present: obese - EENT Eyes: Present: EOMI ENT: Present: hearing grossly normal - Neck Neck: Present: normal ROM - Respiratory Details: breath sounds Slightly decreased at the bases Respiratory: bilateral: CTA - Cardiovascular Rhythm: regular Heart sounds: normal: S1, S2 - Gastrointestinal General gastrointestinal: Present: normal bowel sounds, soft - Integumentary Integumentary: Present: normal turgor - Psychiatric Psychiatric: Present: A&O x's 3, appropriate affect, intact judgment & insight - Additional findings Additional findings: Breast examination: Right breast: Multi-positional exam no dominant masses or nodules of concern Right axilla: No adenopathy of concern Left chest wall: Incision clean and dry Evidence of recurrent cancer Left axilla: No adenopathy of concern Assessment and Plan Assessment: Impression: 1. Abilio an 78-year-old white male status post left mastectomy he did not have any chemo or radiation therapy for stage IB left breast cancer he has no evidence of any recurrent disease at this time Plan: 1. Repeat examination in 3 months follow-up at that time 2. Patient will call sooner if any questions or concerns CC: DR. Nevin Li, Dr. Baker Time with Patient: Less than 30
--- NOTE | 2019-05-26 08:31 | P.PN ---
Progress Note - Text Progress Note Date: 05/26/19 Time spent on encounter of 3-5-20 15 minutes, with > 50% of time in planning and counselling.
== END | disposition home or self-care (01) ==
LOC: WWCWWP 16:09
PROVIDERS: ATTEND Surgery
DX: Z53.9 Procedure and treatment not carried out, unspecified reason (principal)

== ENCOUNTER → 2019-09-10 | Outpatient (CLI) | payer MEDICARE, BC ==
[2019-09-10 16:16] VITALS: BP 125/66; PULSE 66; RESP 18; TEMP 97.9
--- NOTE | 2019-09-10 16:34 | P.PN ---
Subjective Progress Note Date: 09/10/19 Principal diagnosis: stage IB left breast cancer Abilio is an 78-year-old white male who presents following left breast maste[place] [id number]. Pathology was a T2 N1 G2 ER/AZ positive HER-2/valentina positive stage IB left breast cancer. This time he is doing well. He was seen by radiation and medical oncology and has not had any adjuvant therapy. They had considered hormonal therapy but the patient opted not to have this secondary to the cost. The patient is not complaining of any pain masses lungs are nodules in his chest wall or right breast. Family history: Only the patient Surgical history: 1. Left breast mastectomy and axillary node dissection, [id number] 2. appendectomy Medical History: 1. HTN in past 2. Schizophrenia Social History: nicotine: 1 PPD for 10 years, stopped 10 years ago alcohol: stopped 30 years ago, use to drink beer daily drugs: none Review of systems: Constitutional: Negative Lungs: Asthma Heart: Negative GI: Constipation at times, has never had a colonoscopy Musculoskeletal: none psychiatric: schizophrenia Neurologic: Negative Hematologic: Negative, except for baby aspirin daily ALLERGIES: Seasonal ALLERGIES Objective - Vital Signs Vital signs: Vital Signs Temp 97.9 F 09/10/19 16:13 Pulse 66 09/10/19 16:13 Resp 18 09/10/19 16:13 BP 125/66 09/10/19 16:13 Pulse Ox 97 09/10/19 16:13 Intake & Output 09/09/19 09/10/19 09/10/19 18:59 06:59 18:59 Weight 90.718 kg - Exam BMI: 32.3 - Constitutional General appearance: Present: obese - EENT Eyes: Present: EOMI ENT: Present: hearing grossly normal - Neck Neck: Present: normal ROM - Respiratory Respiratory: bilateral: CTA - Cardiovascular Rhythm: regular Heart sounds: normal: S1, S2 - Gastrointestinal General gastrointestinal: Present: normal bowel sounds, soft - Integumentary Integumentary: Present: normal turgor - Musculoskeletal Musculoskeletal: Present: gait normal - Psychiatric Psychiatric: Present: A&O x's 3, appropriate affect, intact judgment & insight - Additional findings Additional findings: breast exam: Right breast: Multiple position on exam with no dominant masses or nodules of concern Right axilla: No adenopathy of concern Left chest wall no evidence of any recurrent cancer Left axilla: No adenopathy of concern Assessment and Plan Assessment: Impression: 1. HTN in past 2. Schizophrenia 3. no evidence of recurrent cancer left breast 4. prior left breast cancer stage IB Plan: 1. left breast mammogram 2. follow up after mammogram CC: DR. Li encounter 15 minutes, > 50% of time in planning and counselling
== END | disposition home or self-care (01) ==
LOC: WWCWWP 15:41
PROVIDERS: ATTEND Surgery
DX: Z53.9 Procedure and treatment not carried out, unspecified reason (principal)

== ENCOUNTER → 2019-10-21 | Outpatient (CLI) | payer MEDICARE, BC ==
--- NOTE | 2019-10-21 11:49 | MM ---
Reason for exam: additional evaluation requested from prior study. Last mammogram was performed 1 year and 1 month ago. History: Patient has history of breast cancer at age 77. Mastectomy of the left breast, September 30, 2018. Malignant ultrasound-guided core biopsy of the left breast, August 13, 2018. Physical Findings: Nurse did not find any significant physical abnormalities on exam. MG 3D Diag Mammo W/Cad RT CC and MLO view(s) were taken of the right breast. Prior study comparison: September 16, 2018, bilateral MG 3d diag mammo w/cad JOHN. There are scattered fibroglandular densities. Stable nodularity and gynecomastia. No significant new findings when compared with previous films. These results were verbally communicated with the patient and result sheet given to the patient on 10/21/19. ASSESSMENT: Benign, BI-RAD 2 RECOMMENDATION: Clinical management of the right breast. Manage patient on a clinical basis.
== END | disposition home or self-care (01) ==
LOC: RADMAMWWP 10:41
PROVIDERS: ATTEND Internal Medicine Hematology & Oncology
DX: Z08 Encounter for follow-up examination after completed treatment for malignant neoplasm (principal); Z85.3 Personal history of malignant neoplasm of breast; Z90.12 Acquired absence of left breast and nipple
CPT/HCPCS: 77065; G0279; 77061

== ENCOUNTER → 2021-01-11 | Outpatient (CLI) | payer MEDICARE, BC ==
--- NOTE | 2021-01-11 14:19 | MM ---
Reason for exam: additional evaluation requested from prior study. Last mammogram was performed 1 year and 3 months ago. History: Patient has history of breast cancer at age 77. Mastectomy of the left breast, September 30, 2018. Malignant ultrasound-guided core biopsy of the left breast, August 13, 2018. Physical Findings: Nurse did not find any significant physical abnormalities on exam. MG 3D Diag Mammo W/Cad RT CC and MLO view(s) were taken of the right breast. Prior study comparison: October 21, 2019, right breast MG 3d diag mammo w/cad RT. September 16, 2018, bilateral MG 3d diag mammo w/cad JOHN. August 22, 2018, bilateral US breast limited BILAT. There are scattered fibroglandular densities. Benign subareolar gynecomastia. Stable intramammary lymph nodes. No significant new findings when compared with previous films. These results were verbally communicated with the patient and result sheet given to the patient on 01/11/21. ASSESSMENT: Benign, BI-RAD 2 RECOMMENDATION: Follow-up diagnostic mammogram of the right breast in 1 year. As determined by physician.
--- NOTE | 2021-01-12 16:18 | BD ---
EXAMINATION TYPE: Axial Bone Density DATE OF EXAM: 01/11/2021 COMPARISON: 2019 CLINICAL HISTORY: 80-year-old male Z79.890 HORMONE REPLACEMENT USE Height: 64 Weight: 196.8 FRAX RISK QUESTIONS: Alcohol (3 or more units per day): no Family History (Parent hip fracture): yes Glucocorticoids (More than 3mos): no (Ex: prednisone, prednisolone, methylprednisolone, dexamethasone, and hydrocortisone). History of Fracture in Adulthood: no Secondary Osteoporosis: 1. Type 1 Diabetes: no 2. Hyperthyroidism: no 3. Menopause before 45: n/a 4. Malnutrition: no 5. Chronic liver disease: no Rheumatoid Arthritis: no Current Tobacco Use: no RISK FACTORS HISTORY OF: History of Wrist Fracture: left When: 1 years old Surgery to Spine/Hip(right/left)/Wrist (right/left): no Family History of Osteoporosis: yes Active: yes Diet low in dairy products/other sources of calcium: no Lost more than 2 inches in height since high school: yes MEDICATIONS: inhaler Additional History: EXAM MEASUREMENTS: Bone mineral densitometry was performed using the [employer] System. Bone mineral density as measured about the Lumbar spine is: ----- L1-L4(G/cm2): 1.795 T Score Values are as follows: ----- L2: 4.6 ----- L3: 4.2 ----- L4: 6.9 ----- L1-L4: 5.1 Bone mineral density has: increased 4.0 % since study of: 12.22.2018 Bone mineral density about the R hip (g/cm2): 0.903 Bone mineral density about the L hip (g/cm2): 0.844 T Score values are as follows: -----R Neck: -1.0 -----L Neck: -1.4 -----R Total: -0.6 -----L Total: -0.1 Bone mineral density has: increased 0.8 % since study of: 12.22.2018 IMPRESSION: Osteopenia (T Score between -2.5 and -1). There is slightly increased risk of fracture and the patient may be considered for treatment. Re-Screen 2-5 years. NOTE: T-SCORE=SD OF THE YOUNG ADULT MEAN.
== END | disposition home or self-care (01) ==
LOC: RADMAMWWP 13:38
PROVIDERS: ATTEND Internal Medicine Hematology & Oncology
DX: M85.852 Other specified disorders of bone density and structure, left thigh (principal); Z79.890 Hormone replacement therapy; R92.2 Inconclusive mammogram; Z85.3 Personal history of malignant neoplasm of breast
CPT/HCPCS: 77080; 77065; G0279; 77061

== ENCOUNTER → 2022-01-22 | Outpatient (CLI) | payer MEDICARE, BC ==
--- NOTE | 2022-01-22 13:52 | MM ---
Reason for Exam: Additional evaluation requested from prior study. Last screening mammogram was performed 12 month(s) ago. Patient History: Breast cancer, left, age 77. 08/13/2018, Malignant Ultrasound-Guided Core Biopsy on the left side. 09/30/2018, Mastectomy on the Left side. Prior Study Comparison: 09/16/2018 Bilateral Diagnostic Mammogram, [facility]. 10/21/2019 Right Diagnostic Mammogram, [facility]. 01/11/2021 Right Diagnostic Mammogram, [facility]. Tissue Density: Right: The breast tissue is heterogeneously dense. This may lower the sensitivity of mammography. Findings: Analyzed By CAD. Stable oval circumscribed 6 mm mass in the upper outer aspect right breast. Benign-appearing right axillary lymph nodes are redemonstrated. Overall Assessment: Benign, BI-RAD 2 Management: Diagnostic Mammogram of the right breast in 1 year. Return to routine follow-up. Results were given to the patient verbally at the time of exam. Electronically signed and approved by: Catrachito Medina M.D.
== END | disposition home or self-care (01) ==
LOC: RADMAMWWP 13:17
PROVIDERS: ATTEND Internal Medicine Hematology & Oncology
DX: R92.8 Other abnormal and inconclusive findings on diagnostic imaging of breast (principal)
CPT/HCPCS: 77065; G0279; 77061